=== PATIENT | male | born 2000 | race African-American/Black ===

== ENCOUNTER 2024-02-02 08:10 | Emergency (ER) | payer BC | END 2024-02-02 09:04 | disposition home or self-care (01) | LOC: JP.ED 08:10 | DX: L03.111 Cellulitis of right axilla (principal) | CPT/HCPCS: 99283 ==

== ENCOUNTER 2024-12-19 18:00 | Emergency (ER) | payer BC, OTHER ==
[2024-12-19 19:55] LABS: BASOPHILS ABSOLUTE AUTO 0.03 K/uL (0.00-0.10); BASOPHILS PERCENT AUTO 0.2 % (0.1-1.3); EOSINOPHILS ABSOLUTE AUTO 0.11 K/uL (0.00-0.40); EOSINOPHILS PERCENT AUTO 0.6 % (0.0-5.4); HEMATOCRIT 41.7 % (38.4-49.7); IMMATURE GRAN ABSOLUTE AUTO 0.07 K/uL (0.00-0.23); IMMATURE GRAN PERCENT AUTO 0.4 % (0.0-0.7); LYMPHOCYTES PERCENT AUTO 19.6 % (11.4-47.7); MEAN CORPUSCULAR HEMOGLOBIN 30.5 pg (31.6-35.5); MEAN CORPUSCULAR HGB CONC 33.6 g/dL (31.6-35.5); MEAN CORPUSCULAR VOLUME 90.8 fL (81.4-99.0); MONOCYTES ABSOLUTE AUTO 1.05 K/uL (0.20-0.90); MONOCYTES PERCENT AUTO 5.9 % (3.3-12.6); NEUTROPHILS ABSOLUTE AUTO 13.11 K/uL (1.0-7.6); NEUTROPHILS PERCENT AUTO 73.3 % (40.0-78.1); PLATELET COUNT,PLT 290 K/uL (130-375); RED BLOOD CELL COUNT 4.59 M/uL (4.14-5.76); WHITE BLOOD CELL COUNT,WBC 17.9 K/uL (3.2-11.0)
[2024-12-19 20:10] LABS: EST CRCL DRUG DOSING (CG) 106.49 mL/min
== END 2024-12-19 20:53 | disposition home or self-care (01) ==
LOC: JP.ED 18:00
DX: J06.9 Acute upper respiratory infection, unspecified (principal); B97.89 Other viral agents as the cause of diseases classified elsewhere
CPT/HCPCS: 36415; 71046; 71046-26; 80048; 85025; 87428-QW; 99283